=== PATIENT | male | born 1980 | race Caucasian/White ===

== ENCOUNTER 2021-04-25 18:37 | Emergency (ER) | payer BC ==
[2021-04-25] MEDS ORDERED: Diphtheria,Pertussis(Acell),Tetanus Vaccine 0.5 ML Syringe IM ONE (19:12)
--- NOTE | 2021-04-25 19:18 | EDM.PDOC ---
ED HPI GENERAL MEDICAL PROBLEM - General Chief Complaint: Laceration Stated Complaint: CUT LEFT LEG Time Seen by Provider: 04/25/21 19:13 Source of Information: Reports: Patient, RN History Limitations: Reports: No Limitations - History of Present Illness INITIAL COMMENTS - FREE TEXT/NARRATIVE: Bolivar is a 40 year presents to ER for evaluation of left anterior lower leg laceration from chain saw around 1 hour ago. Last tetanus more than 5 year ago. Slight pain with minimal bleeding noted. Left Leg Pain Score (Numeric/FACES): 1 - Related Data Allergies Allergy/AdvReac Type Severity Reaction Status Date / Time Iodinated Contrast Media Allergy Hives Verified 04/25/21 19:02 Home Meds: Home Meds NK [No Known Home Meds] 04/25/21 [History] Past Medical History Genitourinary History: Reports: Other (See Below) Other Genitourinary History: traumatic kidney injury as a kid. Social & Family History - Tobacco Use Tobacco Use Status *Q: Never Tobacco User - Caffeine Use Caffeine Use: Reports: Coffee - Recreational Drug Use Recreational Drug Use: No ED ROS GENERAL - Review of Systems Review Of Systems: Comprehensive ROS is negative, except as noted in HPI. ED EXAM, SKIN/RASH Exam: See Below Exam Limited By: No Limitations General Appearance: Alert, WD/WN, No Apparent Distress Eye Exam: Bilateral Eye: Normal Inspection Ears: Hearing Grossly Normal Nose: Normal Inspection Throat/Mouth: Normal Inspection, Normal Voice, No Airway Compromise Neck: Normal Inspection, Full Range of Motion Respiratory/Chest: No Respiratory Distress, Lungs Clear, Normal Breath Sounds Cardiovascular: Normal Peripheral Pulses, Regular Rate, Rhythm GI/Abdominal: Normal Bowel Sounds Back Exam: Normal Inspection, Full Range of Motion Extremities: Normal Inspection, Normal Range of Motion Neurological: Alert, Oriented, CN II-XII Intact, Normal Cognition, Normal Gait Psychiatric: Normal Affect, Normal Mood Location, Skin: Lower Extremity, Left (Three parallel lacareration anterior proximal lower leg at level of patellar tendon ) ED SKIN PROCEDURES - Laceration/Wound Repair Left Lower Anterior Proximal Leg Appearance: Subcutaneous Anesthetic Type: Local Local Anesthesia - Lidocaine (Xylocaine): 1% Plain Local Anesthetic Volume: 3cc Skin Prep: Saline Saline Irrigation (cc's): 250 Exploration/Debridement/Repair: Wound Explored, In a Bloodless Field, Explored to Base, Moderate Debridement Closed with: Sutures Lac/Wound length In cm: 4.5 (and 3.0 cm parallel ) Suture Size: 4-0 # of Sutures: 5 Suture Type: Nylon Drain Placement: No Sterile Dressing Applied: Provider Course - Vital Signs Last Recorded V/S: Last Vital Signs Temp 36.8 C 04/25/21 19:06 Pulse 91 04/25/21 19:06 Resp 14 04/25/21 19:06 BP 129/76 04/25/21 19:06 Pulse Ox 96 04/25/21 19:06 - Orders/Labs/Meds Orders: Active Orders 24 hr Category Date Time Status Vaccines to be Administered [RC] PER UNIT ROUTINE Care 04/25/21 19:12 Active Meds: Medications Discontinued Medications Generic Name Dose Route Start Last Admin Trade Name Vahid PRN Reason Stop Dose Admin Diphtheria/Tetanus/Acell Pertussis 0.5 ml 04/25/21 19:12 04/25/21 19:19 Diphtheria,Pertussis(Acell),Tetanus Vaccine 0.5 Ml Syringe IM 04/25/21 19:13 0.5 ml .ONCE ONE Administration Lidocaine HCl 5 ml 04/25/21 19:12 04/25/21 19:19 Lidocaine 1% 5 Ml Sdv INJECT 04/25/21 19:13 5 ml ONETIME ONE Administration Departure - Departure Time of Disposition: 20:13 Disposition: Home, Self-Care 01 Clinical Impression: Laceration, Leg injury, Tetanus toxoid vaccination administered at current visit - Discharge Information Instructions: Laceration Care, Adult, VIS, Tetanus, Diphtheria, and Pertussis (Tdap) - CDC (12/27/2019) Referrals: PCP,None [Primary Care Provider] - Forms: ED Department Discharge Sepsis Event Note (ED) - Evaluation Sepsis Screening Result: No Definite Risk - Focused Exam Vital Signs: Vital Signs Temp Pulse Resp BP Pulse Ox 04/25/21 19:06 36.8 C 91 14 129/76 96 - My Orders Last 24 Hours: My Active Orders 04/25/21 19:12 Vaccines to be Administered [RC] PER UNIT ROUTINE - Assessment/Plan Last 24 Hours: My Active Orders 04/25/21 19:12 Vaccines to be Administered [RC] PER UNIT ROUTINE
== END 2021-04-25 20:41 | disposition home or self-care (01) ==
LOC: JP.ED 18:37
DX: S81.812A Laceration without foreign body, left lower leg, initial encounter (principal); Z91.041 Radiographic dye allergy status; Z23 Encounter for immunization; W29.3XXA Contact with powered garden and outdoor hand tools and machinery, initial encounter
CPT/HCPCS: 12002; 90471; 90715; 99282-25